=== PATIENT | female | born 1995 | race Two or more races ===

== ENCOUNTER → 2018-03-23 20:29 | Emergency (ER) | payer OTHER ==
[~2018-03-23 20:29] MED LIST: Erythromycin OPTH OINT* APPLIC OINT RIGHT EYE SCH; Tetracaine 0.5% OPTH.SOL 15ML* BTL RIGHT EYE ONE; Tetracaine 0.5% OPTH.SOL 4 ML* 1 DROP BTL RIGHT EYE ONE
--- NOTE | 2018-03-23 21:47 | ED ---
Throat Pain/Nasal Congestion - HPI Summary HPI Summary: This patient is a 22 year old F presenting to ED with a chief complaint of foreign object in R eye since 30-45 minutes ago. She was cutting her nails and a piece flew into her eye. The CC is described as pain in the R lower eye lid. The patient rates the pain 8/10 in severity. Symptoms aggravated by nothing. Symptoms alleviated by nothing. - History of Current Complaint Chief Complaint: EDEyeProblem Time Seen by Provider: 03/23/18 21:37 Hx Obtained From: Patient Onset/Duration: Sudden Onset, Lasting Minutes - 30-45 minutes ago Severity: Severe - 8/10 - Allergies/Home Medications Allergies/Adverse Reactions: Allergies Allergy/AdvReac Type Severity Reaction Status Date / Time No Known Allergies Allergy Verified 03/23/18 20:37 Home Medications: Home Medications NK [No Home Medications Reported] 03/23/18 [History Confirmed 03/23/18] PMH/Surg Hx/FS Hx/Imm Hx Endocrine/Hematology History: Denies: Hx Diabetes Cardiovascular History: Denies: Hx Coronary Artery Disease Respiratory History: Reports: Hx Asthma Infectious Disease History: No Infectious Disease History: Denies: Traveled Outside the [place] in Last 30 Days - Family History Known Family History: Positive: Diabetes Negative: Cardiac Disease, Hypertension - Social History Alcohol Use: None Substance Use Type: Reports: None Smoking Status (MU): Never Smoked Tobacco Review of Systems Negative: Fever Positive: Other - foreign object in R eye, pain in the R lower eye lid All Other Systems Reviewed And Are Negative: Yes Physical Exam - Summary Physical Exam Summary: Appearance: Well-appearing, Well-nourished, lying in bed comfortable Skin: Warm, dry, no obvious rash Eyes: sclera anicteric, no conjunctival pallor. Foreign body observed under R lower eye lid. After topical anesthetic, the foreign body was irrigated out spontaneously. On recheck the foreign body was no longer present. ENT: mucous membranes moist Neck: deferred Respiratory: No signs of respiratory distress Cardiovascular: Appears well perfused, pulses are nml Abdomen: deferred Musculoskeletal: Moving all 4 extremities without obvious discomfort Neurological: Awake and alert, mentation is normal, speech is fluent and appropriate Psychiatric: affect is normal, does not appear anxious or depressed Triage Information Reviewed: Yes Vital Signs On Initial Exam: Initial Vitals Temp Pulse Resp BP Pulse Ox 98.8 F 97 16 127/76 100 03/23/18 20:36 03/23/18 20:36 03/23/18 20:36 03/23/18 20:36 03/23/18 20:36 Vital Signs Reviewed: Yes Diagnostics - Vital Signs Vital Signs Temp Pulse Resp BP Pulse Ox 03/23/18 20:36 98.8 F 97 16 127/76 100 - Laboratory Lab Statement: Any lab studies that have been ordered have been reviewed, and results considered in the medical decision making process. EENT Course/Dx - Course Assessment/Plan: This patient is a 22 year old F presenting to ED with a chief complaint of foreign object in R eye since 30-45 minutes ago. The CC is described as pain in the R lower eye lid. This patient's eye was washed out. The patient will be discharged with dx of foreign body in eye. Patient understands and agrees with this plan. - Differential Diagnoses Differential Diagnoses: Foreign Body - Diagnoses Provider Diagnoses: Foreign body of right eye Discharge - Sign-Out/Discharge Documenting (check all that apply): Patient Departure - discharge - Discharge Plan Condition: Improved Disposition: HOME Patient Education Materials: Eye Foreign Body (ED) Referrals: [place] De Anda MD [Medical Doctor] - Additional Instructions: Use the antibiotic eye ointment 3-4 times daily until Friday afternoon. If you continue to have any eye irritation by , contact the eye doctor to have him examine you more carefully. They have better expertise and equipment to do a proper exam than we have here in the ED. - Billing Disposition and Condition Condition: IMPROVED Disposition: Home - Attestation Statements Document Initiated by Hermelindo: Yes Documenting Scribe: Kb Schmitt Provider For Whom Hermelindo is Documenting (Include Credential): Stephen Veras MD Scribe Attestation: Kb Moore, scribed for Stephen Veras MD on 03/24/18 at 0643. Scribe Documentation Reviewed: Yes Provider Attestation: The documentation as recorded by the Kb barnd accurately reflects the service I personally performed and the decisions made by me, Stephen Veras MD Status of Scribe Document: Viewed
== END | disposition home or self-care (01) ==
LOC: ED 20:29
DX: T15.01XA Foreign body in cornea, right eye, initial encounter (principal)
CPT/HCPCS: 99282; A9270-GY